=== PATIENT | female | born 1985 | race Caucasian/White ===

== ENCOUNTER 2016-02-18 10:35 | Emergency (ER) | payer OTHER ==
[~2016-02-18] VITALS: Ht 165.1 cm; Wt 89.4 kg
[2016-02-18 10:39] VITALS: TEMP 36.8; Ht 165.1 cm; Wt 89.4 kg
[2016-02-18] MEDS ORDERED: IBUP-1050 PO (10:57)
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
[2016-02-18 11:55] LABS: URINE APPEARANCE CLEAR (CLEAR); URINE BILIRUBIN NEG (NEG); URINE COLOR YELLOW; URINE NITRITE NEG (NEG); URINE PH 6.5 (4.5-7.5); URINE SPECIFIC GRAVITY 1.023 (1.000-1.030); UROBILINOGEN NEG (NEG); ZZUR CULT IF INDIC CLEAN CATCH NO
[2016-02-18 11:58] LABS: MANUAL MICROSCOPIC REQUIRED? NO; REVIEW REQ? NO; URINE EPITHELIAL CELL AUTO >30 /lpf (0-5)
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
[2016-02-18 12:56] VITALS: BP 116/88; PULSE 76; O2SAT 99
--- NOTE | 2016-02-18 12:56 | DIAGNOSTIC IMAGING REPORT ---
LEFT KNEE 3 VIEWS, RIGHT KNEE 3 VIEWS CLINICAL HISTORY: Bilateral knee pain. COMPARISON STUDY: None. FINDINGS: No fracture or dislocation within the right or left knee. Soft tissues are unremarkable. No knee effusions. No radiopaque foreign bodies. IMPRESSION: No fractures within the right or left knee. Electronically signed by: Tom Fuentes M.D. 02/18/2016 12:54 PM Dictated Date/Time: 02/18/2016 12:52 PM
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
== END 2016-02-18 13:57 | disposition home or self-care (01) ==
LOC: C.EDB 10:38 → C.EDA 13:57
DX: S02.2XXA Fracture of nasal bones, initial encounter for closed fracture (principal); M25.562 Pain in left knee; M25.561 Pain in right knee; V47.6XXA Car passenger injured in collision with fixed or stationary object in traffic accident, initial encounter; F17.210 Nicotine dependence, cigarettes, uncomplicated; Z83.3 Family history of diabetes mellitus; Z82.49 Family history of ischemic heart disease and other diseases of the circulatory system